=== PATIENT | female | born 1990 | race Caucasian/White ===

== ENCOUNTER 2017-05-15 10:25 | Emergency (ER) | payer OTHER, MEDICAID ==
[2017-05-15] MEDS: DEXAMETHASONE 10 MG/ML 1 ML INJ IM (12:53)
[2017-05-15] MEDS: DIPHENHYDRAMINE 50 MG CAP PO (12:53)
[2017-05-15 13:05] LABS: ADD MAN DIFF? NO
[2017-05-15 13:11] LABS: WHITE BLOOD COUNT 14.8 10^3/ul (4.8-10.8)
[2017-05-15 13:11] LABS: BASOPHIL # 0.1 10^3/ul (0.0-0.1); BASOPHILS % 0.4 % (0.0-2.0); EOSINOPHILS # 0.3 10^3/ul (0.0-0.5); HEMATOCRIT 35.9 % (37.0-47.0); HEMOGLOBIN 11.2 g/dl (12.0-16.0); LYMPHOCYTES # 3.1 10^3/ul (0.8-2.9); LYMPHOCYTES % 20.8 % (15.0-51.0); MEAN CORPUSCULAR HEMOGLOBIN 23.7 pg (29.0-33.0); MEAN CORPUSCULAR HGB CONC 31.2 g/dl (32.0-37.0); MEAN CORPUSCULAR VOLUME 76.1 fl (82.0-101.0); MEAN PLATELET VOLUME 10.2 fl (7.4-10.4); MONOCYTE # 0.8 10^3/ul (0.3-0.9); MONOCYTES % 5.6 % (0.0-11.0); NEUTROPHIL # 10.4 10^3/ul (1.6-7.5); NEUTROPHILS % 70.8 % (39.0-77.0); PLATELET COUNT 362 10^3/UL (140-415); RED BLOOD COUNT 4.72 10^6/ul (4.20-5.40); RED CELL DISTRIBUTION WIDTH 16.7 % (11.5-14.5)
[2017-05-15 13:26] LABS: ALANINE AMINOTRANSFERASE 35 IU/L (13-69); ALBUMIN 4.3 g/dl (3.3-4.9); ALKALINE PHOSPHATASE 81 IU/L (42-121); ANION GAP 16 (8-16); ASPARTATE AMINO TRANSFERASE 19 IU/L (15-46); BILIRUBIN,INDIRECT 0.2 mg/dl (0-1.1); BILIRUBIN,TOTAL 0.2 mg/dl (0.2-1.3); BLOOD UREA NITROGEN 10 mg/dl (7-20); CALCIUM 10.2 mg/dl (8.4-10.2); CARBON DIOXIDE 27 mmol/L (21-31); CHLORIDE 106 mmol/L (97-110); GLUCOSE 82 mg/dl (70-220); LIPASE 67 U/L (23-300); POTASSIUM 4.2 mmol/L (3.5-5.1); SODIUM 145 mmol/L (135-144); TOTAL PROTEIN 8.6 g/dl (6.1-8.1)
[2017-05-15 13:35] LABS: INR 1.04; PROTIME 13.7 Sec (11.9-14.9); PT RATIO 1.1
[2017-05-15 13:38] LABS: PARTIAL THROMBOPLASTIN TIME 35.4 Sec (25.0-35.0)
== END 2017-05-15 14:05 | disposition home or self-care (01) ==
LOC: FTE 10:25
DX: R21 Rash and other nonspecific skin eruption (principal)
CPT/HCPCS: 80053; 83690; 85025; 85610; 85730; 96372; 99284-25

== ENCOUNTER 2017-07-04 12:53 | Emergency (ER) | payer OTHER ==
[2017-07-04] MEDS: ONDANSETRON 4 MG INJ IV (19:48)
[2017-07-04] MEDS: morphine 4 MG/ML VIAL IV (19:48)
[2017-07-04] MEDS: SOD CHLORIDE 0.9% 1,000 ML IV (19:48)
[2017-07-04 20:55] LABS: ADD MAN DIFF? NO
[2017-07-04 20:57] LABS: WHITE BLOOD COUNT 16.2 10^3/ul (4.8-10.8)
[2017-07-04 20:57] LABS: BASOPHIL # 0.1 10^3/ul (0.0-0.1); BASOPHILS % 0.3 % (0.0-2.0); EOSINOPHILS # 0.3 10^3/ul (0.0-0.5); EOSINOPHILS % 1.9 % (0.0-7.0); HEMATOCRIT 37.3 % (37.0-47.0); HEMOGLOBIN 11.1 g/dl (12.0-16.0); MEAN CORPUSCULAR HEMOGLOBIN 22.7 pg (29.0-33.0); MEAN CORPUSCULAR HGB CONC 29.8 g/dl (32.0-37.0); MEAN CORPUSCULAR VOLUME 76.3 fl (82.0-101.0); MONOCYTE # 0.8 10^3/ul (0.3-0.9); MONOCYTES % 5.1 % (0.0-11.0); NEUTROPHIL # 10.9 10^3/ul (1.6-7.5); NEUTROPHILS % 67.3 % (39.0-77.0); PLATELET COUNT 368 10^3/UL (140-415); RED BLOOD COUNT 4.89 10^6/ul (4.20-5.40); RED CELL DISTRIBUTION WIDTH 16.4 % (11.5-14.5)
[2017-07-04 21:16] LABS: ALANINE AMINOTRANSFERASE 28 IU/L (13-69); ALBUMIN 4.2 g/dl (3.3-4.9); ALBUMIN/GLOBULIN RATIO 1.13; ALKALINE PHOSPHATASE 72 IU/L (42-121); ANION GAP 17 (8-16); ASPARTATE AMINO TRANSFERASE 15 IU/L (15-46); BILIRUBIN,INDIRECT 0.3 mg/dl (0-1.1); BILIRUBIN,TOTAL 0.3 mg/dl (0.2-1.3); BLOOD UREA NITROGEN 9 mg/dl (7-20); CALCIUM 9.3 mg/dl (8.4-10.2); CARBON DIOXIDE 22 mmol/L (21-31); CHLORIDE 106 mmol/L (97-110); CREATININE 0.42 mg/dl (0.44-1.00); GLUCOSE 96 mg/dl (70-220); LIPASE 512 U/L (23-300); POTASSIUM 3.9 mmol/L (3.5-5.1); SODIUM 141 mmol/L (135-144); TOTAL PROTEIN 7.9 g/dl (6.1-8.1)
[2017-07-04 21:27] LABS: TROPONIN-I < 0.012 ng/ml (0.00-0.12)
== END 2017-07-05 05:48 | disposition home or self-care (01) ==
LOC: E/R 07-05 05:48
DX: R10.84 Generalized abdominal pain (principal); R10.2 Pelvic and perineal pain; Z86.69 Personal history of other diseases of the nervous system and sense organs
CPT/HCPCS: 74176; 76705; 76801; 80053; 83690; 84484; 84702; 84703; 85025; 86900; 86901; 93005; 96374; 96375; 99285-25

== ENCOUNTER 2017-12-25 08:45 | Emergency (ER) | payer OTHER ==
[2017-12-25 10:16] LABS: ADD MAN DIFF? NO
[2017-12-25 10:17] LABS: WHITE BLOOD COUNT 14.1 10^3/ul (4.8-10.8)
[2017-12-25 10:17] LABS: BASOPHIL # 0.1 10^3/ul (0.0-0.1); BASOPHILS % 0.4 % (0.0-2.0); EOSINOPHILS # 0.3 10^3/ul (0.0-0.5); EOSINOPHILS % 2.3 % (0.0-7.0); HEMATOCRIT 37.4 % (37.0-47.0); LYMPHOCYTES # 3.2 10^3/ul (0.8-2.9); LYMPHOCYTES % 22.6 % (15.0-51.0); MEAN CORPUSCULAR HEMOGLOBIN 22.4 pg (29.0-33.0); MEAN CORPUSCULAR HGB CONC 29.4 g/dl (32.0-37.0); MEAN CORPUSCULAR VOLUME 76.2 fl (82.0-101.0); MONOCYTE # 0.8 10^3/ul (0.3-0.9); MONOCYTES % 5.9 % (0.0-11.0); NEUTROPHIL # 9.6 10^3/ul (1.6-7.5); NEUTROPHILS % 68.1 % (39.0-77.0); PLATELET COUNT 376 10^3/UL (140-415); RED BLOOD COUNT 4.91 10^6/ul (4.20-5.40); RED CELL DISTRIBUTION WIDTH 17.7 % (11.5-14.5)
[2017-12-25 10:23] LABS: ADD UMIC YES; UR ASCORBIC ACID NEGATIVE (NEGATIVE); UR BACTERIA FEW /HPF (NONE SEEN); UR BILIRUBIN (Dip) NEGATIVE (NEGATIVE); UR BLOOD (Dip) 1+ mg/dL (NEGATIVE); UR CLARITY CLEAR (CLEAR); UR COLOR YELLOW (YELLOW); UR GLUCOSE (Dip) NEGATIVE (NEGATIVE); UR KETONES (Dip) NEGATIVE (NEGATIVE); UR LEUKOCYTE ESTERASE (Dip) NEGATIVE Leu/ul (NEGATIVE); UR MUCUS FEW /HPF (NONE SEEN); UR NITRITE (Dip) NEGATIVE (NEGATIVE); UR RBC 5 /HPF (0-5); UR SPECIFIC GRAVITY (Dip) 1.015 (1.003-1.030); UR TOTAL PROTEIN (Dip) 1+ mg/dl (NEGATIVE); UR UROBILINOGEN (Dip) 1+ mg/dL (NEGATIVE); UR WBC 1 /HPF (0-5)
[2017-12-25 10:37] LABS: ALANINE AMINOTRANSFERASE 78 IU/L (13-69); ALBUMIN 4.1 g/dl (3.3-4.9); ALBUMIN/GLOBULIN RATIO 1.05; ALKALINE PHOSPHATASE 73 IU/L (42-121); ANION GAP 9 (5-13); ASPARTATE AMINO TRANSFERASE 53 IU/L (15-46); BILIRUBIN,INDIRECT 0.3 mg/dl (0-1.1); BILIRUBIN,TOTAL 0.3 mg/dl (0.2-1.3); BLOOD UREA NITROGEN 7 mg/dl (7-20); CALCIUM 9.5 mg/dl (8.4-10.2); CARBON DIOXIDE 22 mmol/L (21-31); CHLORIDE 109 mmol/L (97-110); CREATININE 0.37 mg/dl (0.44-1.00); Estimated GFR > 60 mL/min (>60); GLUCOSE 97 mg/dl (70-220); INR 0.94; LIPASE 51 U/L (23-300); PROTIME 12.7 Sec (11.9-14.9); SODIUM 140 mmol/L (135-144)
[2017-12-25 10:46] LABS: B-TYPE NATRIURETIC PEPTIDE 67 PG/ML (0-125)
[2017-12-25 10:50] LABS: POTASSIUM 4.1 mmol/L (3.5-5.1)
[2017-12-25] MEDS: LIDOCAINE/MYLANTA 40 ML BTL PO (10:50)
[2017-12-25] MEDS: FAMOTIDINE 20 MG TAB PO (10:50)
[2017-12-25] MEDS: BELLADONNA/PHENOBARBITAL TAB PO (10:50)
[2017-12-25] MEDS: KETOROLAC 15 MG INJ IV (10:51)
== END 2017-12-25 12:07 | disposition home or self-care (01) ==
LOC: E/R 08:45
DX: G80.9 Cerebral palsy, unspecified (principal); R60.9 Edema, unspecified; E66.9 Obesity, unspecified
CPT/HCPCS: 36415; 71045; 80053; 81001; 83690; 83880; 84703; 85025; 85610; 85730; 87086; 93971; 96374; 99285-25

== ENCOUNTER 2018-03-26 14:17 | Emergency (ER) | payer OTHER ==
[2018-03-26] MEDS: SOD CHLORIDE 0.9% 1,000 ML IV ×2 (15:54→17:34)
[2018-03-26 15:57] LABS: ADD MAN DIFF? NO
[2018-03-26 16:02] LABS: WHITE BLOOD COUNT 16.5 10^3/ul (4.8-10.8)
[2018-03-26 16:02] LABS: BASOPHIL # 0.1 10^3/ul (0.0-0.1); BASOPHILS % 0.4 % (0.0-2.0); EOSINOPHILS # 0.2 10^3/ul (0.0-0.5); EOSINOPHILS % 1.3 % (0.0-7.0); HEMATOCRIT 37.4 % (37.0-47.0); LYMPHOCYTES # 2.8 10^3/ul (0.8-2.9); LYMPHOCYTES % 17.1 % (15.0-51.0); MEAN CORPUSCULAR HGB CONC 29.4 g/dl (32.0-37.0); MEAN CORPUSCULAR VOLUME 78.1 fl (82.0-101.0); MEAN PLATELET VOLUME 10.3 fl (7.4-10.4); NEUTROPHIL # 12.3 10^3/ul (1.6-7.5); NEUTROPHILS % 74.8 % (39.0-77.0); PLATELET COUNT 381 10^3/UL (140-415); RED BLOOD COUNT 4.79 10^6/ul (4.20-5.40); RED CELL DISTRIBUTION WIDTH 17.1 % (11.5-14.5)
[2018-03-26 16:16] LABS: ALANINE AMINOTRANSFERASE 43 IU/L (13-69); ALBUMIN 4.3 g/dl (3.3-4.9); ALBUMIN/GLOBULIN RATIO 1.16; ALKALINE PHOSPHATASE 78 IU/L (42-121); ANION GAP 11 (5-13); ASPARTATE AMINO TRANSFERASE 36 IU/L (15-46); BLOOD UREA NITROGEN 10 mg/dl (7-20); CALCIUM 10.5 mg/dl (8.4-10.2); CARBON DIOXIDE 25 mmol/L (21-31); CHLORIDE 105 mmol/L (97-110); CREATININE 0.64 mg/dl (0.44-1.00); Estimated GFR > 60 mL/min (>60); GLUCOSE 96 mg/dl (70-220); LIPASE 75 U/L (23-300); SODIUM 141 mmol/L (135-144)
[2018-03-26] MEDS: KETOROLAC 15 MG INJ IV (17:10)
== END 2018-03-26 18:35 | disposition home or self-care (01) ==
LOC: E/R 14:17
DX: E86.0 Dehydration (principal); R40.2252 Coma scale, best verbal response, oriented, at arrival to emergency department; R40.2362 Coma scale, best motor response, obeys commands, at arrival to emergency department; R40.2142 Coma scale, eyes open, spontaneous, at arrival to emergency department; Z86.69 Personal history of other diseases of the nervous system and sense organs
CPT/HCPCS: 36415; 80053; 83690; 84702; 85025; 87400; 93005; 96374; 99284-25

== ENCOUNTER 2018-04-28 07:36 | Emergency (ER) | payer OTHER | END 2018-04-28 08:26 | disposition home or self-care (01) | LOC: FTE 07:36 | DX: L02.416 Cutaneous abscess of left lower limb (principal); L03.032 Cellulitis of left toe | CPT/HCPCS: 99283; Z7502 ==